=== PATIENT | female | born 1995 | race American Indian/Alaskan Native ===

== ENCOUNTER 2019-06-12 14:12 | Emergency (ER) | payer OTHER ==
[2019-06-12] MEDS ORDERED: BOOSTRIX IM ONE (14:21)
[2019-06-12 14:22] VITALS: BP 121/74
--- NOTE | 2019-06-12 14:22 | Event Note ---
ED Screening Note Date of service: 06/12/19 Time: 14:18 ED Screening Note: This is a 23 y.o. F. that presents to the ER with nausea and abdominal pain x 1 month. Stepped on a nail 1 week ago and felt discomfort to right 2nd toe. Reports improved pain but concerned of tetanus vaccine. Current Marijuana Taking Tylenol at home. LMP 06/03/2019 This initial assessment/diagnostic orders/clinical plan/treatment(s) is/are subject to change based on patients health status, clinical progression and re- assessment by fellow clinical providers in the ED. Further treatment and workup at subsequent clinical providers discretion. Patient/guardian urged not to elope from the ED as their condition may be serious if not clinically assessed and managed. Initial orders include: Tetanus
--- NOTE | 2019-06-12 15:04 | Emergency Department Report ---
- General Chief Complaint: Pain General Stated Complaint: fever, body aches, cough Time Seen by Provider: 06/12/19 14:18 Source: patient Mode of arrival: Ambulatory Limitations: No Limitations - History of Present Illness Initial Comments: Patient is a 23-year-old female presents with a dry cough that began 3 days ago. She has associated congestion, nausea, body aches, subjective fever. She denies any sick contacts. She denies any sore throat or earache. the patient has not taken anything for her symptoms. She denies any past medical history or allergies to medications. last menstrual cycle was June 03. 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 no injury or fall. No numbness or weakness. - Related Data Previous Rx's Medication Instructions Recorded Last Taken Type Benzonatate [Tessalon Perles] 100 mg PO Q8HR PRN #20 capsule 06/12/19 Unknown Rx Cetirizine HCl [ZyrTEC 10mg cap] 10 mg PO DAILY #30 capsule 06/12/19 Unknown Rx Fluticasone [Flonase] 1 spray NS QDAY #1 bottle 06/12/19 Unknown Rx Ondansetron [Zofran Odt] 4 mg PO Q8HR PRN #14 tab.rapdis 06/12/19 Unknown Rx Prednisone [predniSONE 10 mg 10 mg PO .TAPER #1 tab.ds.pk 06/12/19 Unknown Rx (6-Day Pack, 21 Tabs)] Allergies Allergy/AdvReac Type Severity Reaction Status Date / Time No Known Allergies Allergy Unverified 06/12/19 14:14 ED Review of Systems ROS: Stated complaint: FEVER/R WRIST PAIN/R FOOT INJURY Other details as noted in HPI Comment: All other systems reviewed and negative ED Past Medical Hx - Past Medical History Previous Medical History?: No Hx Asthma: No - Surgical History Past Surgical History?: No - Social History Smoking Status: Never Smoker Substance Use Type: Alcohol, Marijuana - Medications Home Medications: Home Medications Medication Instructions Recorded Confirmed Last Taken Type Benzonatate [Tessalon Perles] 100 mg PO Q8HR PRN #20 capsule 06/12/19 Unknown Rx Cetirizine HCl [ZyrTEC 10mg cap] 10 mg PO DAILY #30 capsule 06/12/19 Unknown Rx Fluticasone [Flonase] 1 spray NS QDAY #1 bottle 06/12/19 Unknown Rx Ondansetron [Zofran Odt] 4 mg PO Q8HR PRN #14 tab.rapdis 06/12/19 Unknown Rx Prednisone [predniSONE 10 mg 10 mg PO .TAPER #1 tab.ds.pk 06/12/19 Unknown Rx (6-Day Pack, 21 Tabs)] ED Physical Exam - General Limitations: No Limitations General appearance: alert, in no apparent distress - Head Head exam: Present: atraumatic, normocephalic - Eye Eye exam: Present: normal appearance, PERRL - ENT ENT exam: Present: normal orophraynx, mucous membranes moist, other (pale boggy turbinates) - Respiratory Respiratory exam: Present: normal lung sounds bilaterally. Absent: respiratory distress, wheezes, rales, rhonchi, stridor, accessory muscle use, decreased breath sounds, prolonged expiratory - Cardiovascular Cardiovascular Exam: Present: regular rate, normal rhythm, normal heart sounds. Absent: systolic murmur, diastolic murmur, rubs, gallop - Extremities Exam Extremities exam: Present: other (no tenderness of the right wrist, hand or fingers, no snuffbox tenderness, FROM of the right wrist, hand and fingers with no difficulty, no deformity, 2+radial pulse, sensation intact) - Neurological Exam Neurological exam: Present: alert, oriented X3 - Psychiatric Psychiatric exam: Present: normal affect, normal mood - Skin Skin exam: Present: warm, dry, intact ED Course Vital Signs 06/12/19 14:18 Temperature 98.4 F Pulse Rate 97 H Respiratory 16 Rate Blood Pressure 121/74 O2 Sat by Pulse 100 Oximetry ED Medical Decision Making - Medical Decision Making Patient is a 23-year-old female presents with a dry cough that began 3 days ago. She has associated congestion, nausea, body aches, subjective fever. She denies any sick contacts. She denies any sore throat or earache. the patient has not taken anything for her symptoms. She denies any past medical history or allergies to medications. last menstrual cycle was June 03. 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 no injury or fall. No numbness or weakness. vitals are normal. pt is afebrile. on exam: pale boggy turbinates, clear breath sounds bilaterally without w/r/r. no tenderness of the right wrist, hand or fingers, no snuffbox tenderness, FROM of the right wrist, hand and fingers with no difficulty, no deformity, 2+radial pulse, sensation intact. pt most likely has viral URI/allergies. will give medications for symptomatic relief. advised pt to please take medication as prescribed. please drink plenty of fluids. follow up with a primary care doctor in the next 2-3 days. May take ibuprofen or Tylenol for wrist discomfort. Return to the emergency room for any new or worsening symptoms. - Differential Diagnosis PNA, viral syndrome, URI, allergies, allergic rhinitis Critical care attestation.: If time is entered above; I have spent that time in minutes in the direct care of this critically ill patient, excluding procedure time. ED Disposition Clinical Impression: Right wrist pain Upper respiratory infection Qualifiers: URI type: unspecified viral URI Qualified Code(s): J06.9 - Acute upper respiratory infection, unspecified Disposition: - TO HOME OR SELFCARE Is pt being admited?: No Does the pt Need Aspirin: No Condition: Stable Instructions: Upper Respiratory Infection (ED), Arthralgia (ED) Additional Instructions: Please take medication as prescribed. please drink plenty of fluids. follow up with a primary care doctor in the next 2-3 days. May take ibuprofen or Tylenol for wrist discomfort. Return to the emergency room for any new or worsening symptoms. Prescriptions: Fluticasone [Flonase] 1 spray NS QDAY #1 bottle Prednisone [predniSONE 10 mg (6-Day Pack, 21 Tabs)] 10 mg PO .TAPER #1 tab.ds.pk Benzonatate [Tessalon Perles] 100 mg PO Q8HR PRN #20 capsule PRN Reason: Cough Ondansetron [Zofran Odt] 4 mg PO Q8HR PRN #14 tab.rapdis PRN Reason: Nausea Cetirizine HCl [ZyrTEC 10mg cap] 10 mg PO DAILY #30 capsule Referrals: ANKIT WAGGONER MD [Primary Care Provider] - 2-3 Days Forms: Work/School Release Form(ED) Time of Disposition: 15:05 Print Language: TUNISIAN
== END 2019-06-12 15:37 | disposition home or self-care (01) ==
LOC: ED 14:12
DX: J06.9 Acute upper respiratory infection, unspecified (principal); M25.531 Pain in right wrist; F12.10 Cannabis abuse, uncomplicated; Z79.899 Other long term (current) drug therapy
CPT/HCPCS: 90471; 90715; 99282

== ENCOUNTER 2021-09-17 13:22 | Emergency (ER) | payer SELFPAY ==
[2021-09-17 13:33] VITALS: BP 123/69
[2021-09-17] MEDS ORDERED: HYDROcodone/ACETAMINOPHEN 7.5-325MG TAB PO ONE (13:53)
--- NOTE | 2021-09-17 13:55 | Emergency Department Report ---
Upper Extremity - [facility] Chief Complaint: Extremity Injury, Upper Stated Complaint: POSS BROKEN FINGER Upper Extremity: Right Ring Finger Occurred When: Today Mechanism: Fall Severity: moderate Symptoms: Yes Pain with Movement, Yes Deformity, Yes Swelling Other History: 26-year-old -Nepalese female presents to the emergency room complaining of right hand middle finger injury. Patient states that she fell just 1 hour prior to arrival. She denies any other injury. Her last menstrual period was 09/06/2021 and not sure if she can be . Patient reports no known drug allergies does not take any medications on a daily basis and has no past medical history. ED Review of Systems ROS: Stated complaint: POSS BROKEN FINGER Other details as noted in HPI ED Past Medical Hx - Past Medical History Previous Medical History?: No Hx Asthma: No - Surgical History Past Surgical History?: No - Social History Smoking Status: Never Smoker Substance Use Type: Alcohol, Marijuana - Medications Home Medications: Home Medications Medication Instructions Recorded Confirmed Last Taken Type Benzonatate [Tessalon Perles] 100 mg PO Q8HR PRN #20 capsule 06/12/19 Unknown Rx Cetirizine HCl [ZyrTEC 10mg cap] 10 mg PO DAILY #30 capsule 06/12/19 Unknown Rx Fluticasone [Flonase] 1 spray NS QDAY #1 bottle 06/12/19 Unknown Rx Ondansetron [Zofran Odt] 4 mg PO Q8HR PRN #14 tab.rapdis 06/12/19 Unknown Rx Prednisone [predniSONE 10 mg 10 mg PO .TAPER #1 tab.ds.pk 06/12/19 Unknown Rx (6-Day Pack, 21 Tabs)] traMADoL [Ultram 50 MG tab] 50 mg PO Q6HR PRN #12 tablet 09/17/21 Unknown Rx Upper Extremity Exam - Exam General: Vital signs noted. No distress. Alert and acting appropriately. Head and Torso: No HEENT Abnormality, No Neck Tenderness, No Chest/Lungs Abnormality, No Abdominal Tenderness, No Back Tenderness Shoulder Exam: Yes Normal Range of Motion in Shoulder, No Shoulder Tenderness, No Clavicle Tenderness, No Shoulder Deformity, No AC Joint Tenderness Arm Exam: No Arm/Humerus Tenderness, No Arm Deformity Elbow: No Elbow Tenderness, No Normal Range of Motion in Elbow, No Elbow Deformity Forearm: No Forearm Tenderness, No Forearm Deformity, No Pain with Pronation, No Pain with Supination Wrist: Yes Normal ROM in Wrist, No Wrist Tenderness, No Wrist Deformity, No Snuffbox Tenderness, No Pain with Axial Thumb Compression Hand: Yes Digit Tenderness, Yes Normal ROM in Digit(s), Yes Digit(s) Deformity, No Hand Tenderness, No Hand Deformity, No Tendon Dysfunction CMS Exam: Yes Normal Distal Pulses, Yes Normal Capillary Refill, Yes Normal Distal Sensation, No Broken Skin ED Course Vital Signs 09/17/21 13:31 Temperature 98.7 F Pulse Rate 98 H Respiratory 16 Rate Blood Pressure 123/69 O2 Sat by Pulse 99 Oximetry ED Medical Decision Making - Radiology Data Radiology results: report reviewed [facility] [address] [place] [address] XRay Report Signed Patient: GALI CERVANTES MR#: [id number] : 1995 Acct:[id number] Age/Sex: 26 / F ADM Date: 09/17/21 Loc: ED Attending Dr: Ordering Physician: SARA KIRAN Date of Service: 09/17/21 Procedure(s): XR finger(s) 2+V RT Accession Number(s): [id number] cc: SARA KIRAN Fluoro Time In Minutes: RIGHT FINGER(S) 4 VIEW(S) INDICATION / CLINICAL INFORMATION: Injury pain and deformity COMPARISON: None available. FINDINGS: BONES / JOINT(S): There is an oblique intra-articular fracture of the middle phalanx of the fourth digit. The intra-articular portion involves the distal interphalangeal joint. No significant arthritis. SOFT TISSUES: No significant abnormality. ADDITIONAL FINDINGS: None. Signer Name: Edgar Fisher DO Signed: 09/17/2021 4:20 PM Workstation Name: [id number] Transcribed By: NS Dictated By: EDGAR FISHER DO Electronically Authenticated By: EDGAR FISHER DO Signed Date/Time: 09/17/21 1620 - Medical Decision Making 26-year-old -Nepalese female presents to the emergency room complaining of right hand middle finger injury. Patient states that she fell just 1 hour prior to arrival. She denies any other injury. Her last menstrual period was 09/06/2021 and not sure if she can be . Patient reports no known drug allergies does not take any medications on a daily basis and has no past medical history. hCG urine and x-ray of right fingers. [place] 5 mg ordered for pain management. She does have some deformity and swelling. Critical care attestation.: If time is entered above; I have spent that time in minutes in the direct care of this critically ill patient, excluding procedure time. ED Disposition Clinical Impression: Finger fracture, right Qualifiers: Encounter type: initial encounter Finger: ring finger Fracture type: closed Phalanx: middle Fracture alignment: nondisplaced Qualified Code(s): S62.654A - Nondisplaced fracture of middle phalanx of right ring finger, initial encounter for closed fracture Disposition: HOME / SELF CARE / HOMELESS Is pt being admited?: No Does the pt Need Aspirin: No Condition: Stable Instructions: Finger Fracture, Adult, [id number] Additional Instructions: X-ray of your finger shows an oblique fracture. Placing you in a finger splint pain medicine and follow-up with an orthopedic provider. Prescriptions: traMADoL [Ultram 50 MG tab] 50 mg PO Q6HR PRN #12 tablet PRN Reason: Pain Referrals: JOYCE BARAHONA MD [Staff Physician] - 3-5 Days Forms: Work/School Release Form(ED)
[2021-09-17 15:55] LABS: HCG Qualitative,Urine Negative (Negative)
--- NOTE | 2021-09-17 16:24 | XRay Report ---
RIGHT FINGER(S) 4 VIEW(S) INDICATION / CLINICAL INFORMATION: Injury pain and deformity COMPARISON: None available. FINDINGS: BONES / JOINT(S): There is an oblique intra-articular fracture of the middle phalanx of the fourth di git. The intra-articular portion involves the distal interphalangeal joint. No significant arthritis. SOFT TISSUES: No significant abnormality. ADDITIONAL FINDINGS: None. Signer Name: Edgar Zaidi DO Signed: 09/17/2021 4:20 PM Workstation Name: [id number]
== END 2021-09-17 17:12 | disposition home or self-care (01) ==
LOC: ED 13:22
DX: S62.654A Nondisplaced fracture of middle phalanx of right ring finger, initial encounter for closed fracture (principal); F12.90 Cannabis use, unspecified, uncomplicated; Z72.89 Other problems related to lifestyle; X58.XXXA Exposure to other specified factors, initial encounter; Y93.89 Activity, other specified; Y92.89 Other specified places as the place of occurrence of the external cause; Y99.8 Other external cause status
CPT/HCPCS: 81025; 99283